=== PATIENT | female | born 1950 | race Caucasian/White ===

== ENCOUNTER 2019-01-23 13:53 | Day surgery (SDC) | payer OTHER ==
[2019-01-23 14:40] LABS: ADD MAN DIFF? NO
[2019-01-23 14:45] LABS: WHITE BLOOD COUNT 7.4 10^3/ul (4.8-10.8)
[2019-01-23 14:45] LABS: BASOPHIL # 0.1 10^3/ul (0.0-0.1); BASOPHILS % 0.8 % (0.0-2.0); EOSINOPHILS # 0.2 10^3/ul (0.0-0.5); EOSINOPHILS % 3.2 % (0.0-7.0); HEMATOCRIT 38.5 % (37.0-47.0); HEMOGLOBIN 12.7 g/dl (12.0-16.0); LYMPHOCYTES # 2.7 10^3/ul (0.8-2.9); LYMPHOCYTES % 36.9 % (15.0-51.0); MEAN CORPUSCULAR HEMOGLOBIN 27.7 pg (29.0-33.0); MEAN CORPUSCULAR VOLUME 83.9 fl (82.0-101.0); MEAN PLATELET VOLUME 10.1 fl (7.4-10.4); MONOCYTE # 0.6 10^3/ul (0.3-0.9); MONOCYTES % 7.5 % (0.0-11.0); NEUTROPHIL # 3.8 10^3/ul (1.6-7.5); NEUTROPHILS % 51.3 % (39.0-77.0); PLATELET COUNT 246 10^3/UL (140-415); RED BLOOD COUNT 4.59 10^6/ul (4.20-5.40); RED CELL DISTRIBUTION WIDTH 13.7 % (11.5-14.5)
[2019-01-23] MEDS ORDERED: SOD CHLORIDE 0.9% 1,000 ML IV ×2 (15:00→17:48)
[2019-01-23 15:06] LABS: ANION GAP 9 (5-13); BLOOD UREA NITROGEN 14 mg/dl (7-20); CARBON DIOXIDE 27 mmol/L (21-31); CHLORIDE 106 mmol/L (97-110); CREATININE 0.82 mg/dl (0.44-1.00); Estimated GFR > 60 mL/min (>60); GLUCOSE 105 mg/dl (70-220); POTASSIUM 3.7 mmol/L (3.5-5.1); SODIUM 142 mmol/L (135-144)
[2019-01-23 15:07] LABS: INR 0.89; PROTIME 12.2 Sec (11.9-14.9)
[2019-01-23] MEDS ORDERED: LIDOCAINE 1% (MDV) 20 ML INJ (17:07)
[2019-01-23] MEDS ORDERED: HEPARIN 1000 UNITS/ML 10 ML INJ (17:08)
[2019-01-23] MEDS ORDERED: VERAPAMIL 5 MG INJ (17:08)
[2019-01-23] MEDS ORDERED: NITROGLYCERIN (IC) 100 MCG/ML INJ (17:08)
[2019-01-23] MEDS ORDERED: IODIXANOL LOCM 100 ML BTL (17:08)
[2019-01-23] MEDS ORDERED: MIDAZOLAM 1 MG/ML 2 ML INJ (17:31)
[2019-01-23] MEDS ORDERED: FENTAnyl 50 MCG/ML VIAL (17:31)
== END 2019-01-23 20:15 | disposition home or self-care (01) ==
LOC: CCL 13:53 → GIL 13:53 → SDS 13:53 → CCL 20:15
DX: I25.10 Atherosclerotic heart disease of native coronary artery without angina pectoris (principal); E11.9 Type 2 diabetes mellitus without complications; I10 Essential (primary) hypertension
CPT/HCPCS: 80048; 85025; 85610; 93005; 93454